=== PATIENT | male | born 1960 | race Caucasian/White ===

== ENCOUNTER 2016-12-20 09:10 | Emergency (ER) | payer OTHER ==
[~2016-12-20] VITALS: Ht 177.8 cm; Wt 135.7 kg
[~2016-12-20 09:10] MED LIST: ALLOPURINOL300 MG PO; BENICAR HCT 401 EAC1 PO
[2016-12-20 10:31] LABS: EOSINOPHIL (%) 0.3 % (0-5); HEMATOCRIT 43.7 % (38.0-50.0); IMMATURE GRANULOCYTE (%) 0.8 % (0.0-0.7); IMMATURE GRANULOCYTE COUNT 0.1 K/uL; INSTRUMENT ABS NEUTROPHIL CT 10.4 K/uL; LYMPHOCYTE COUNT 1.6 K/uL (1.0-2.8); MCH 28.1 PG (29.0-34.0); MCHC 33.9 G/DL (30.0-36.0); MCV 83.1 FL (86-99); MEAN PLAT.VOLUME 9.1 uM^3 (9.0-12.4); MONOCYTE (%) 9.4 % (3-12); MONOCYTE COUNT 1.3 K/uL (0-0.8); NEUTROPHIL (%) 77.3 % (45-76); NEUTROPHIL COUNT 10.4 K/uL (1.8-6.4); PLATELET COUNT 144 K/uL (156-360); RBC DIS.WIDTH-CV 13.9 % (11.8-14.6); RBC DIS.WIDTH-SD 41.4 % (39-53); RED BLOOD COUNT 5.26 M/uL (4.00-5.50); WHITE BLOOD COUNT 13.4 K/uL (4.1-10.2)
[2016-12-20 10:42] LABS: D-DIMER ELISA 0.68 mg/L FEU (< 0.57)
[2016-12-20 10:52] LABS: CHLORIDE 101 mEq/L (99-109); POTASSIUM 3.5 mEq/L (3.7-5.4); SODIUM 138 mEq/L (136-147)
[2016-12-20 10:55] LABS: GLUCOSE 154 mg/dL (70-99)
[2016-12-20 10:56] LABS: ANION GAP 10 MEQ/L (2-14)
[2016-12-20 10:57] LABS: TOTAL BILIRUBIN 0.7 mg/dL (0.0-1.0)
[2016-12-20 10:58] LABS: ALKALINE PHOSPHATASE 73 IU/L (3-129); GFR ESTIMATE (CALCULATED) > 59 mL/min/
[2016-12-20 10:59] LABS: UREA NITROGEN (BUN) 22 mg/dL (9-23)
[2016-12-20 11:00] LABS: TROP-I INTERPRETATION NEGATIVE; TROPONIN-I < 0.01 ng/mL (0.0-0.30)
[2016-12-20 14:11] LABS: TROP-I INTERPRETATION NEGATIVE; TROPONIN-I < 0.01 ng/mL (0.0-0.30)
[2016-12-20] MEDS ORDERED: MOTRIN800 MG PO (14:39)
[2016-12-20] MEDS ORDERED: PRILOSEC20 MG PO (14:39)
[2016-12-20 14:58] VITALS: BP 129/83
== END 2016-12-20 15:21 | disposition home or self-care (01) ==
LOC: EME 09:10
PROVIDERS: Emergency Medicine
DX: R07.81 Pleurodynia (principal); I10 Essential (primary) hypertension; E78.5 Hyperlipidemia, unspecified; E11.9 Type 2 diabetes mellitus without complications; Z79.84 Long term (current) use of oral hypoglycemic drugs
CPT/HCPCS: 71010; 71275; 80053; 84484; 85025; 85379; 93005; 99281; 99285; J2270; J7030

== ENCOUNTER → 2017-06-04 | Outpatient (CLI) | payer OTHER ==
[~2017-06-04] VITALS: Ht 179.1 cm; Wt 132.0 kg
[~2017-06-04] MED LIST changes: +GLUCOTROL XL5 MG PO; +HYZAAR 100-21 TABLET PO; +LIPITOR40 MG PO; +MOTRIN800 MG PO; +NORVASC10 MG PO; +PRILOSEC10 MG PO; +PRILOSEC20 MG PO; +TOPROL XL50 MG PO
[2017-06-04 07:32] LABS: POINT-OF-CARE METER ID UU14107333
== END | disposition home or self-care (01) ==
LOC: AMB 06:47
PROVIDERS: Internal Medicine
DX: Z12.11 Encounter for screening for malignant neoplasm of colon (principal); K63.5 Polyp of colon; K57.30 Diverticulosis of large intestine without perforation or abscess without bleeding; K64.8 Other hemorrhoids; I10 Essential (primary) hypertension; E11.9 Type 2 diabetes mellitus without complications; E78.5 Hyperlipidemia, unspecified; Z79.84 Long term (current) use of oral hypoglycemic drugs
CPT/HCPCS: 82948; 88305; J2250